=== PATIENT | female | born 1950 | race Caucasian/White ===

== ENCOUNTER 2024-07-18 13:41 | Emergency (ER) | payer OTHER, BC ==
[2024-07-18] MEDS ORDERED: TDAP (DIPHTH,PERTUSS(ACELL),TET VAC) 0.5 ML VIAL IMVAC ONE (14:38)
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
[2024-07-18 15:39] VITALS: BP 189/91; TEMP 98; O2SAT 100
== END 2024-07-18 14:58 | disposition home or self-care (01) ==
LOC: ER 13:41
DX: S51.812A Laceration without foreign body of left forearm, initial encounter (principal); W26.8XXA Contact with other sharp object(s), not elsewhere classified, initial encounter; Z23 Encounter for immunization
CPT/HCPCS: 90471; 90715; 99284